=== PATIENT | male | born 1930 | race Caucasian/White ===

== ENCOUNTER 2017-07-06 08:41 | Inpatient (IN) | payer MEDICARE, SELFPAY ==
[~2017-07-06] VITALS: Ht 175.3 cm; Wt 64.6 kg
[~2017-07-06 08:41] MED LIST: AMLO5 PO; ASPI81CH PO; ATOR40TA PO; CLOP75 PO; Hydrocodone-Ap1 EA20 PO; Isosorbide Mono30 MG PO; LISI5 PO; Lopressor 25 mg25 MG PO; Nitrostat0.4 MG SL
[2017-07-06 09:18] LABS: BASOPHILS ABSOLUTE AUTO 0.02 K/mm3 (0.00-0.23); BASOPHILS PERCENT AUTO 0 % (0-2); EOSINOPHILS ABSOLUTE AUTO 0.02 K/mm3 (0.00-0.68); EOSINOPHILS PERCENT AUTO 0 % (0-6); Hematocrit 22.5 % (37.0-53.0); Hemoglobin 6.5 g/dL (13.5-17.5); IMMATURE GRAN ABSOLUTE AUTO 0.05 K/mm3 (0.00-0.10); IMMATURE GRAN PERCENT AUTO 1 % (0-1); LYMPHOCYTES ABSOLUTE AUTO 0.48 K/mm3 (0.84-5.20); LYMPHOCYTES PERCENT AUTO 7 % (21-46); MONOCYTES ABSOLUTE AUTO 0.81 K/mm3 (0.16-1.47); MONOCYTES PERCENT AUTO 11 % (4-13); Mean Corpuscular HGB 29.4 pg (26.0-34.0); Mean Corpuscular HGB Conc 28.9 g/dL (31.5-36.5); Mean Corpuscular Volume 102 fL (80-100); Mean Platelet Volume 10.3 fL (9.1-12.4); NEUTROPHILS ABSOLUTE AUTO 5.99 K/mm3 (1.96-9.15); NEUTROPHILS PERCENT AUTO 81 % (41-73); NRBC ABSOLUTE 0.02 K/mm3 (0.00-0.02); NRBC Auto 0.3 /100 WBC (0.0-0.2); Platelet Count 278 K/mm3 (150-400); RDW Standard Deviation 59.5 fL (35.1-46.3); Red Blood Cell Count 2.21 M/mm3 (4.30-5.90); White Blood Cell Count 7.37 K/mm3 (4.00-11.30)
[2017-07-06 09:36] LABS: International Normalized Ratio 1.33
[2017-07-06 09:36] LABS: PCO2 Arterial 18.7 mmHg (35-45); PO2 Arterial 96.9 mmHg (80-100); pH Blood Arterial 7.12 (7.35-7.45)
[2017-07-06 09:52] LABS: Albumin, Blood 2.9 g/dL (3.4-5.0); Albumin/Globulin Ratio 0.8 (0.8-1.8); Bilirubin, Total 0.7 mg/dL (0.1-1.0); Bun/Creatinine Ratio 22.3 (12.0-20.0); Calcium, Blood 7.8 mg/dL (8.5-10.1); Creatinine, Blood 4.3 mg/dL (0.60-1.20); Globulin, Blood 3.5 g/dL (2.2-4.0); Potassium, Blood 5.2 mmol/L (3.5-5.5); Total Protein, Blood 6.4 g/dL (6.4-8.2); Troponin I 1.68 ng/mL (0.000-0.040)
[2017-07-06 10:06] LABS: Creatine Kinase MB 18.3 ng/mL (0.0-3.6); Creatine Kinase MB Index 5.2 (0.0-4.0)
[2017-07-06 10:07] LABS: Source, Urine Catheter
[2017-07-06 10:23] LABS: Bilirubin, Urine Neg (Neg); Blood, Urine Neg (Neg); Glucose Qualitative, Urine Neg (Neg); Ketones, Urine Neg (Neg); Leukocyte Esterase, Urine Neg (Neg); Nitrite, Urine Neg (Neg); Protein, Urine 2+ (Neg); Urobilinogen, Urine NORM (Normal)
[2017-07-06 10:30] LABS: Appearance, Urine Clear (Clear); Color, Urine Yellow (P-Yellow)
[2017-07-06 10:37] LABS: Bacteria Not Seen /hpf; Red Blood Cells, Urine 0-2 /hpf (0-2); White Blood Cells, Urine Rare /hpf (0-5)
[2017-07-06 10:38] LABS: Transitional Epithelial Cells Few /hpf (0-Rare)
[2017-07-06 10:43] LABS: Squamous Epithelial Cells Rare /hpf (Few)
== END 2017-07-06 23:30 | DRG 64 ==
LOC: ER 08:41 → MEDS 10:21
PROVIDERS: Emergency Medicine
DX: I63.9 Cerebral infarction, unspecified (principal); J18.9 Pneumonia, unspecified organism; I21.4 Non-ST elevation (NSTEMI) myocardial infarction; J44.1 Chronic obstructive pulmonary disease with (acute) exacerbation; K92.2 Gastrointestinal hemorrhage, unspecified; N17.9 Acute kidney failure, unspecified; M62.82 Rhabdomyolysis; N18.4 Chronic kidney disease, stage 4 (severe); D62 Acute posthemorrhagic anemia; I12.9 Hypertensive chronic kidney disease with stage 1 through stage 4 chronic kidney disease, or unspecified chronic kidney disease; Z51.5 Encounter for palliative care; I67.2 Cerebral atherosclerosis; M26.69 Other specified disorders of temporomandibular joint; Z66 Do not resuscitate; Z87.891 Personal history of nicotine dependence; I95.9 Hypotension, unspecified; R29.711 NIHSS score 11
CPT/HCPCS: 36415; 36600; 51702; 70450; 71045; 80053; 81001; 82550; 82553; 82803; 83605; 84484; 85025; 85610; 85730; 86850; 86900; 86901; 86923; 87040; 93005; 93010; 96361; 96374; 96375; 99285; J2060; J2930; J7030